=== PATIENT | female | born 1995 | race Caucasian/White ===

== ENCOUNTER 2018-12-15 12:24 | Emergency (ER) | payer OTHER ==
[2018-12-15 12:30] VITALS: BMI 34.9
[2018-12-15 12:55] LABS: BASOPHILS 0.1 % (0-2); EOSINOPHILS 1.8 % (0-7); HEMOGLOBIN 8.5 g/dL (12-16); IMMATURE GRANULOCYTES 0.2 % (0-5); MCH 25.4 pg (26.0-34.0); MCHC 32.7 g/dL (31.0-37.0); MCV 77.6 fL (80.0-100.0); MEAN PLATELET VOLUME 9.8 fL (7.4-10.4); MONOCYTES 7.1 % (2-11); NEUTROPHILS 65.8 % (40-80); PLATELET COUNT 242 10x3/uL (130-400); RBC 3.35 10x6/uL (4.00-5.40); RDW 17.2 % (11.5-14.5); WBC 8.8 10x3/uL (4.8-10.8)
[2018-12-15 13:07] LABS: HCG URINE POSITIVE (NEGATIVE)
[2018-12-15 13:09] LABS: ALBUMIN 3.1 g/dL (3.4-5.0); ALKALINE PHOSPHATASE 67 U/L (46-116); ALT (SGPT) 20 U/L (10-68); AMYLASE - SERUM 22 U/L (25-115); BILIRUBIN - TOTAL 0.58 mg/dL (0.2-1.3); CALC OSMOLALITY 275 mosm/kg (275-300); CALCIUM 8.6 mg/dL (8.5-10.1); CARBON DIOXIDE 28.6 mmol/L (21.0-32.0); CHLORIDE - SERUM 104 mmol/L (98-107); CREATININE - SERUM 0.8 mg/dL (0.6-1.3); GLUCOSE 105 mg/dL (74-106); LIPASE 51 U/L (73-393); POTASSIUM - SERUM 3.5 mmol/L (3.5-5.1); SODIUM 139 mmol/L (136-145); UREA NITROGEN 8 mg/dL (7-18); eGFR NON AFRICAN AMERICAN > 90 mL/min (90-120)
--- NOTE | 2018-12-15 13:25 | NUR ---
DR. RIVAS NOTIFIED AND REVIEWED PT'S BEHAVIOR AND ASSESSMENT RESULTS. PT IS A LOW RISK PER DR. RIVAS. DR. RIVAS STATED TO GIVE RESOURCES TO PT AT THE TIME OF DISCHARGE. NO FURTHER ORDERS AT THIS TIME. REVIEWED WITH PT AND SHE VERBALIZIED UNDERSTANDING.
[2018-12-15 13:39] LABS: APPEARANCE CLEAR (CLEAR); BILIRUBIN NEGATIVE (NEGATIVE); COLOR YELLOW (YELLOW); GLUCOSE NEGATIVE (NEGATIVE); KETONE NEGATIVE (NEGATIVE); NITRITE NEGATIVE (NEGATIVE); PROTEIN NEGATIVE (NEGATIVE); SPECIFIC GRAVITY 1.015 (1.005-1.020); UROBILINOGEN NORMAL (NORMAL)
[2018-12-15 13:40] LABS: BACTERIA MODERATE /hpf (NONE SEEN); EPITHELIAL CELLS 0-5 /hpf (0-5); MUCUS >1+ /lpf (NONE SEEN); RED CELLS - URINE 0-5 /hpf (0-5); WHITE CELLS - URINE RARE /hpf (0-5)
[2018-12-15] MEDS ORDERED: FERROUS SULFAT325 MG PO (14:54)
[2018-12-15] MEDS ORDERED: TYLENOL W/CODEI1 TAB PO (15:04)
[2018-12-15 15:49] VITALS: BP 126/74
== END 2018-12-15 15:59 | disposition home or self-care (01) ==
LOC: D.ER 12:24
PROVIDERS: Emergency Medicine
DX: R10.9 Unspecified abdominal pain (principal); D64.9 Anemia, unspecified; F17.200 Nicotine dependence, unspecified, uncomplicated

== ENCOUNTER 2020-10-14 03:02 | Emergency (ER) | payer MEDICAID ==
[~2020-10-14] VITALS: Ht 162.6 cm; Wt 96.8 kg
[~2020-10-14 03:02] MED LIST: FERROUS SULFAT325 MG PO; TYLENOL W/CODEI1 TAB PO
[2020-10-14 03:29] VITALS: BP 123/59; Ht 162.6 cm; Wt 96.8 kg
== END 2020-10-14 06:35 | disposition home or self-care (01) ==
LOC: D.ER 03:02
DX: O26.892 Other specified pregnancy related conditions, second trimester (principal); Z3A.16 16 weeks gestation of pregnancy